=== PATIENT | female | born 1985 | race Caucasian/White ===

== ENCOUNTER 2020-11-17 10:55 | Day surgery (SDC) | payer BC, SELFPAY ==
[2020-11-16 12:44] LABS: BASOPHILS % (AUTO) 0.7 % (0.0-2.0); EOSINOPHILS # (AUTO) 0.1 K/uL (0.0-0.4); EOSINOPHILS % (AUTO) 1.4 % (0.0-4.0); HEMATOCRIT 33.4 % (36-48); HEMOGLOBIN 10.6 g/dL (12.0-16.0); LYMPHOCYTES # (AUTO) 1.2 K/uL (1.0-5.5); LYMPHOCYTES % (AUTO) 21.2 % (20.5-51.5); MEAN CORPUSCULAR HEMOGLOBIN 25 pg (27-31); MEAN CORPUSCULAR HGB CONC 32 % (32-36); MEAN CORPUSCULAR VOLUME 80 fL (79.0-98.0); MONOCYTES # (AUTO) 0.5 K/uL (0.0-1.0); MONOCYTES % (AUTO) 8.5 % (1.7-9.3); NEUTROPHILS # (AUTO) 3.9 K/uL (1.8-7.7); NEUTROPHILS % (AUTO) 68.2 % (40.0-70.0); PLATELET COUNT (AUTO) 374 K/uL (130-430); RED BLOOD CELL COUNT(AUTO) 4.18 MIL/uL (4.2-6.2); RED CELL DISTRIBUTION WIDTH 15.7 % (9.0-15.0); WHITE BLOOD COUNT (AUTO) 5.7 K/uL (4.8-10.8)
[~2020-11-17] VITALS: Ht 165.1 cm; Wt 74.4 kg
[2020-11-17] MEDS ORDERED: VASOPRESSIN 20 UNITS/ML VIAL IV ONE (12:30)
[2020-11-17] MEDS ORDERED: LIDOCAINE 2%, 20 ML MDV INJ ONE (12:30)
[2020-11-17] MEDS ORDERED: LR 1,000 ML IV.SOLN IV ONE (12:30)
[2020-11-17] MEDS ORDERED: fentaNYL CITRATE/PF 100 MCG/2 ML AMP IVP ONE (12:30)
[2020-11-17] MEDS ORDERED: CEFAZOLIN 2 GM IVPB PREMIX 50 ML IV ONE (12:30)
[2020-11-17] MEDS ORDERED: SEVOFLURANE 15 MIN GAS INH ONE (12:30)
[2020-11-17] MEDS ORDERED: DEXAMETHASONE SOD PHOSPHATE 4 MG/ML VIAL IVP ONE (12:30)
[2020-11-17] MEDS ORDERED: MIDAZOLAM HCL 5 MG/5 ML VIAL IVP ONE (12:30)
[2020-11-17] MEDS ORDERED: PROPOFOL 200MG/ 20ML VIAL (DIPRIVAN) IV ONE (12:30)
[2020-11-17] MEDS ORDERED: GLYCOPYRROLATE 0.2 MG/ML VIAL IJ ONE (12:30)
[2020-11-17] MEDS ORDERED: ONDANSETRON HCL 4 MG/2 ML VIAL IVP ONE (12:30)
[2020-11-17] MEDS ORDERED: NS IRRIG SOLN 1000 ML IR ONE (12:30)
[2020-11-17] MEDS ORDERED: OXYCODONE/ACETAMINOPHEN 5-325 TABLET PO PRN ×2 (13:00)
[2020-11-17] MEDS ORDERED: ONDANSETRON HCL 4 MG/2 ML VIAL IVP PRN ×2 (13:00→13:15)
[2020-11-17] MEDS ORDERED: HYDROcodone/ACETAMIN 5-325 MG TAB (NORCO/ VICODIN) PO PRN (13:00)
[2020-11-17] MEDS ORDERED: MIDAZOLAM HCL 2 MG/2 ML VIAL (VERSED) IVP PRN (13:15)
[2020-11-17] MEDS ORDERED: METOCLOPRAMIDE HCL 10 MG/2 ML VIAL IVP PRN (13:15)
[2020-11-17] MEDS ORDERED: LR 1,000 ML IV SCH (13:15)
[2020-11-17] MEDS ORDERED: MEPERIDINE HCL/PF 25 MG/ML DISP.SYRIN IVP PRN (13:15)
[2020-11-17] MEDS ORDERED: HYDROmorphone 1 MG/ML INJ. CARTRIDGE IVP PRN (13:15)
[2020-11-17] MEDS: HYDROmorphone 1 MG/ML INJ. CARTRIDGE IVP PRN ×2 (13:37→13:42)
[2020-11-17] MEDS ORDERED: HYDROmorphone 1 MG/ML INJ. CARTRIDGE ONE (13:37)
[2020-11-17 15:05] VITALS: BP_SYST 119
== END 2020-11-17 16:28 | disposition home or self-care (01) ==
LOC: SDS 10:55 → SMU 10:55 → SDS 16:28
PROVIDERS: ATTEND Specialist
DX: O03.4 Incomplete spontaneous abortion without complication (principal)
CPT/HCPCS: 36415; 59812; 84702; 85025; 86886; 86900; 86901; 87426; 88305; J0690; J1100; J1170; J2001; J2250; J2405; J2704; J3010; J3490 ×2; J7120

== ENCOUNTER 2020-12-15 08:14 | Outpatient (CLI) | payer BC ==
[2020-12-15] MEDS ORDERED: DIATR MEGLU/DIATRIZ SOD 30 ML SOLUTION PO ONE (08:39)
== END 2020-12-15 21:01 | disposition home or self-care (01) ==
LOC: SCT 08:14
PROVIDERS: ATTEND Specialist
DX: N83.201 Unspecified ovarian cyst, right side (principal); K52.89 Other specified noninfective gastroenteritis and colitis; R10.2 Pelvic and perineal pain
CPT/HCPCS: 74177; 76376; Q9964; Q9967

== ENCOUNTER 2020-12-19 08:38 | Outpatient (CLI) | payer BC | END 2020-12-19 20:29 | disposition home or self-care (01) | LOC: SUS 08:38 | PROVIDERS: ATTEND Specialist | DX: R19.00 Intra-abdominal and pelvic swelling, mass and lump, unspecified site (principal); N83.201 Unspecified ovarian cyst, right side | CPT/HCPCS: 76830-TC; 76857 ==